=== PATIENT | male | born 1990 | race Caucasian/White ===

== ENCOUNTER 2017-02-24 00:01 | Emergency (ER) | payer SELFPAY ==
[~2017-02-24] VITALS: Ht 182.9 cm; Wt 77.1 kg
[2017-02-24] MEDS ORDERED: LACTATED RINGERS 1,000 ML IV ONE ×2 (00:32→02:31)
--- NOTE | 2017-02-24 00:40 | ED GI ---
General Chief Complaint: -Male Stated Complaint: VOMITING,DIARRHEA Nursing Triage Note: PT AMBULATED TO ROOM. PT STATES HE HAS BEEN VOMITING AND HAVING DIARRHEA SINCE 1700 TODAY. Sepsis Screen: No Definite Risk Source of Information: Patient History of Present Illness Time Seen By Provider: 00:24 Initial Comments PT C/O NAUSEA/VOMITING/DIARRHEA SINCE 1699 TODAY HAS VOMITED > 15 TIMES, DIARRHEA >30 TIMES--NO HEMATEMESIS, AND NO BLACK/BLOODY/ TARRY STOOLS VOIDED "A COUPLE OF DROPS" OVER 2 HOURS AGO NO KNOWN FEVER MINOR GENERALIZED ABDOMINAL PAIN/DISCOMFORT PT STATES "I CAN'T KEEP DOWN WATER--I'M SEVERELY DEHYDRATED" STATES HE WORKED UNTIL 1400 TODAY AND FELT FINE ATE AT 1500 TODAY--[employer]for SANDWICH + ANTIPASTA AT [employer] --GIRLFRIEND HAD THE SAME AND SHE IS NOT ILL. NO KNOWN SICK CONTACTS ATE A CANDY BAR FOR BREAKFAST NO OTHER FOOD INTAKE TODAY WAS DRINKING LIQUIDS UP UNTIL THAT POINT NO PCP Allergies and Home Medications Allergies Coded Allergies: No Known Drug Allergies (Unverified , 02/24/17) Home Medications Hyoscyamine Sulfate 0.125 Mg Tab.subl, 1-2 TAB SL Q4H, #15 Prescribed by: CASIMIRO KING on 02/24/17 0240 Lactobacillus Acidophilus 1 Each Capsule, 2 EACH PO QID, #80 Prescribed by: CASIMIRO KING on 02/24/17 0240 Ondansetron 4 Mg Tab.rapdis, 4 MG PO Q4H, #10 Prescribed by: CASIMIRO KING on 02/24/17 0240 Review of Systems Constitutional: No chills, No diaphoresis, No dizziness, No fever, malaise, weakness EENTM: No Symptoms Reported Respiratory: No Symptoms Reported Cardiovascular: No Symptoms Reported Gastrointestinal: See HPI, Abdominal Pain, Diarrhea, Nausea, Poor Appetite, Poor Fluid Intake, Vomiting Genitourinary: See HPI Musculoskeletal: no symptoms reported Skin: no symptoms reported Psychiatric/Neurological: No Symptoms Reported Endocrine: No Symptoms Reported Hematologic/Lymphatic: No Symptoms Reported Past Adudbja-Lyxzgo-Gzqmbj Hx Patient Social History Alcohol Use: Occasionally Uses Recreational Drug Use: Yes (THC) Drug of Choice: THC Smoking Status: Never a Smoker 2nd Hand Smoke Exposure: No Recent Foreign Travel: No Contact w/Someone Who Travel: No Recent Infectious Disease Expo: No Recent Hopitalizations: No Seasonal Allergies Seasonal Allergies: No Surgeries HX Surgeries: No Respiratory Hx Respiratory Disorders: No Cardiovascular Hx Cardiac Disorders: No Neurological Hx Neurological Disorders: No Reproductive System Hx Reproductive Disorders: No Genitourinary Hx Genitourinary Disorders: No Gastrointestinal Hx Gastrointestinal Disorders: No Musculoskeletal Hx Musculoskeletal Disorders: No Endocrine Hx Endocrine Disorders: No HEENT HX ENT Disorders: No Cancer Hx Cancer: No Psychosocial Hx Psychiatric Problems: No Integumentary HX Skin/Integumentary Disorder: No Blood Transfusions Hx Blood Disorders: No Physical Exam Vital Signs VS - Last 72 Hours, by Label 02/24/17 00:13 Temp 97.7 Pulse 84 Resp 20 B/P (MAP) 123/82 Pulse Ox 100 O2 Delivery Room Air Capillary Refill : Less Than 3 Seconds General Appearance: thin, other (LOOKS MILDLY ILL) HEENT: PERRL/EOMI, other (DRY ORAL MUCOSA) Neck: non-tender, full range of motion, supple, normal inspection Respiratory: normal breath sounds, no respiratory distress, no accessory muscle use Cardiovascular: regular rate, rhythm, no JVD, no murmur Gastrointestinal: soft, no organomegaly, no pulsatile mass, abnormal bowel sounds (RARE), No distended, No guarding, No rebound, tenderness (MILD DIFFUSE) Extremities: normal range of motion, non-tender, normal inspection, no pedal edema, no calf tenderness, normal capillary refill Back: normal inspection, no CVA tenderness, no vertebral tenderness Neurologic/Psychiatric: cake former II-XII nml as tested, no motor/sensory deficits, alert, normal mood/affect, oriented x 3 Skin: normal color, warm/dry Progress/Results/Core Measures Results/Orders Lab Results Laboratory Tests Test 02/24/17 00:21 02/24/17 02:05 Range/Units White Blood Count 13.2 H 4.3-11.0 10^3/uL Red Blood Count 5.70 4.35-5.85 10^6/uL Hemoglobin 17.2 13.3-17.7 G/DL Hematocrit 49 40-54 % Mean Corpuscular Volume 87 80-99 FL Mean Corpuscular Hemoglobin 30 25-34 PG Mean Corpuscular Hemoglobin Concent 35 32-36 G/DL Red Cell Distribution Width 12.6 10.0-14.5 % Platelet Count 224 130-400 10^3/uL Mean Platelet Volume 10.9 H 7.4-10.4 FL Neutrophils (%) (Auto) 80 H 42-75 % Lymphocytes (%) (Auto) 9 L 12-44 % Monocytes (%) (Auto) 10 0-12 % Eosinophils (%) (Auto) 1 0-10 % Basophils (%) (Auto) 0 0-10 % Neutrophils # (Auto) 10.8 H 1.8-7.8 X 10^3 Lymphocytes # (Auto) 0.9 L 1.0-4.0 X 10^3 Monocytes # (Auto) 1.3 H 0.0-1.0 X 10^3 Eosinophils # (Auto) 0.2 0.0-0.3 10^3/uL Basophils # (Auto) 0.0 0.0-0.1 10^3/uL Sodium Level 140 135-145 MMOL/L Potassium Level 4.2 3.6-5.0 MMOL/L Chloride Level 103 98-107 MMOL/L Carbon Dioxide Level 22 21-32 MMOL/L Anion Gap 15 H 5-14 MMOL/L Blood Urea Nitrogen 22 H 7-18 MG/DL Creatinine 1.08 0.60-1.30 MG/DL Estimat Glomerular Filtration Rate > 60 BUN/Creatinine Ratio 20 Glucose Level 150 H 70-105 MG/DL Calcium Level 10.4 H 8.5-10.1 MG/DL Total Bilirubin 1.2 H 0.1-1.0 MG/DL Aspartate Amino Transf (AST/SGOT) 86 H 5-34 U/L Alanine Aminotransferase (ALT/SGPT) 182 H 0-55 U/L Alkaline Phosphatase 86 40-136 U/L Total Protein 8.4 H 6.4-8.2 GM/DL Albumin 5.1 H 3.2-4.5 GM/DL Amylase Level 114 25-125 U/L Lipase 7 L 8-78 U/L Urine Color YELLOW Urine Clarity CLEAR Urine pH 8 5-9 Urine Specific [place] 1.015 L 1.016-1.022 Urine Protein 2+ H NEGATIVE Urine Glucose (UA) NEGATIVE NEGATIVE Urine Ketones NEGATIVE NEGATIVE Urine Nitrite NEGATIVE NEGATIVE Urine Bilirubin NEGATIVE NEGATIVE Urine Urobilinogen NORMAL NORMAL MG/DL Urine Leukocyte Esterase NEGATIVE NEGATIVE Urine RBC (Auto) NEGATIVE NEGATIVE Urine RBC NONE /HPF Urine WBC NONE /HPF Urine Squamous Epithelial Cells RARE /HPF Urine Crystals NONE /LPF Urine Bacteria TRACE /HPF Urine Casts NONE /LPF Urine Mucus SMALL H /LPF Urine Culture Indicated NO My Orders Orders - CASIMIRO KING DO Saline Lock/Iv-Start (02/24/17 00:32) Amylase (02/24/17 00:32) Cbc With Automated Diff (02/24/17 00:32) Comprehensive Metabolic Panel (02/24/17 00:32) Lipase (02/24/17 00:32) Ua Culture If Indicated (02/24/17 00:32) Stool Culture (02/24/17 00:32) Fecal Wbc (02/24/17 00:32) Ondansetron Injection (Zofran Injectio (02/24/17 00:45) Saline Lock/Iv-Start (02/24/17 00:32) Lactated Ringers (Lr 1000 Ml Iv Solution (02/24/17 00:32) C Difficile Ag + Toxin A/B. (02/24/17 00:32) Ct Abdomen/Pelvis W (02/24/17 01:18) Iohexol Injection (Omnipaque 350 Mg/Ml 1 (02/24/17 01:30) Ns (Ivpb) (Sodium Chloride 0.9% Ivpb Bag (02/24/17 01:30) Ondansetron Injection (Zofran Injectio (02/24/17 01:45) Hepatitis Panel Acute (02/24/17 01:35) Saline Lock/Iv-Start (02/24/17 02:31) Lactated Ringers (Lr 1000 Ml Iv Solution (02/24/17 02:31) Medications Given in ED Current Medications Medications Dose Ordered Sig/Mirian Route Start Time Stop Time Status Last Admin Dose Admin Iohexol 100 ml ONCE ONCE IV 02/24/17 01:30 02/24/17 01:54 DC 02/24/17 01:55 100 ML Lactated Ringer's 1,000 ml @ 0 mls/hr Q0M ONCE IV 02/24/17 00:32 02/24/17 00:34 DC 02/24/17 00:49 1,000 MLS/HR Lactated Ringer's 1,000 ml @ 0 mls/hr Q0M ONCE IV 02/24/17 02:31 02/24/17 02:32 DC 02/24/17 02:30 1,000 MLS/HR Ondansetron HCl 8 mg ONCE ONCE IVP 02/24/17 00:45 02/24/17 00:46 DC 02/24/17 00:49 8 MG Ondansetron HCl 8 mg ONCE ONCE IVP 02/24/17 01:45 02/24/17 01:46 DC 02/24/17 01:38 8 MG Sodium Chloride 80 ml ONCE ONCE IV 02/24/17 01:30 02/24/17 01:54 DC 02/24/17 01:54 80 ML Vital Signs/I&O Vital Sign - Last 12Hours 02/24/17 00:13 Temp 97.7 Pulse 84 Resp 20 B/P (MAP) 123/82 Pulse Ox 100 O2 Delivery Room Air Blood Pressure Mean: 96 Progress Note : Progress Note DIARRHEA X 1 IN ER ON ARRIVAL--SENT FOR STOOL STUDIES, NO FURTHER DIARRHEA VOMITED X 1 ON ARRIVAL, NO FURTHER VOMITING NAUSEA RELIEVED AND PT TOLERATING WATER LOOKS AND FEELS MUCH BETTER AT DISMISSAL, AND PT COMFORTABLE GOING HOME. Diagnostic Imaging Comments CT ABDOMEN/PELVIS--DIFFUSE FLUID FILLED AND HYPEREMIC LOOPS OF SMALL AND LARGE BOWEL EXTENDING DOWN TO RECTUM--NON-SPECIFIC, BUT MAY REPRESENT GASTROENTERITIS- -INFECTIOUS VS INFLAMMATORY, MILDLY ENLARGED LIVER AND FATTY INFILTRATION--PER [facility] VIA FAX @ 9781 Reviewed: Reviewed by Me Departure Impression Impression: Primary Impression: Gastroenteritis Additional Impressions: Dehydration Elevated liver enzymes Disposition: HOME, SELF-CARE Condition: Improved Departure-Patient Inst. Referrals: NO,LOCAL PHYSICIAN (PCP/Family) Primary Care Physician Patient Instructions: Dehydration, Adult (DC), Liver Function Test, Viral Gastroenteritis, Adult (DC) Add. Discharge Instructions: CLEAR LIQUIDS--WATER, BROTH, JELLO, GATORADE TOMORROW IF YOU ARE BETTER, ADD BRATS DIET TO CLEAR LIQUIDS ACIDOPHILUS 2 PILLS 4 TIMES A DAY X 1 WEEK FOLLOW UP WITH TOMORROW IF NO BETTER, RETURN TO ER IF WORSE FOLLOW UP WITH IN 1 WEEK TO RECHECK LAB AND LIVER ENZYMES--LIST OF LOCAL DR'S PROVIDED All discharge instructions reviewed with patient and/or family. Voiced understanding. Scripts Ondansetron (Zofran Odt) 4 Mg Tab.rapdis 4 MG PO Q4H for Nausea/Vomiting, #10 TAB Prov: CASIMIRO KING DO 02/24/17 Hyoscyamine Sulfate (Levsin-Sl) 0.125 Mg Tab.subl 1-2 TAB SL Q4H for Abdominal Pain, #15 TAB Prov: CASIMIRO KING DO 02/24/17 Lactobacillus Acidophilus (Acidophilus) 1 Each Capsule 2 EACH PO QID, #80 CAP Prov: CASIMIRO KING DO 02/24/17 Work/School Note: Local Medical Staff Listing, Work Release Form Date Seen in the Emergency Department: Feb 24, 2017 Return to Work: Feb 26, 2017 Restrictions: No Restrictions CASIMIRO KING DO Feb 24, 2017 00:40
[2017-02-24] MEDS ORDERED: ONDANSETRON 4 MG/2 ML (SDV) Z0FRAN IVP ONE ×2 (00:45→01:45)
[2017-02-24 00:49] LABS: BASOPHILS % (AUTO) 0 % (0-10); EOSINOPHILS # (AUTO) 0.2 10^3/uL (0.0-0.3); EOSINOPHILS % (AUTO) 1 % (0-10); LYMPHOCYTES # (AUTO) 0.9 X 10^3 (1.0-4.0); LYMPHOCYTES % (AUTO) 9 % (12-44); MEAN CORPUSCULAR HEMOGLOBIN 30 PG (25-34); MEAN CORPUSCULAR HGB CONC 35 G/DL (32-36); MEAN CORPUSCULAR VOLUME 87 FL (80-99); MEAN PLATELET VOLUME 10.9 FL (7.4-10.4); MONOCYTES # (AUTO) 1.3 X 10^3 (0.0-1.0); MONOCYTES % (AUTO) 10 % (0-12); NEUTROPHILS # (AUTO) 10.8 X 10^3 (1.8-7.8); PLATELET COUNT 224 10^3/uL (130-400); RED CELL DISTRIBUTION WIDTH 12.6 % (10.0-14.5); WHITE BLOOD COUNT 13.2 10^3/uL (4.3-11.0)
[2017-02-24 00:50] LABS: NEUTROPHILS % (AUTO) 80 % (42-75)
[2017-02-24 01:09] LABS: ALANINE AMINOTRANSFERASE 182 U/L (0-55); ALBUMIN 5.1 GM/DL (3.2-4.5); AMYLASE 114 U/L (25-125); ANION GAP 15 MMOL/L (5-14); ASPARTATE AMINO TRANSFERASE 86 U/L (5-34); BILIRUBIN,TOTAL 1.2 MG/DL (0.1-1.0); BLOOD UREA NITROGEN 22 MG/DL (7-18); BUN/CREATININE RATIO 20; CALCIUM 10.4 MG/DL (8.5-10.1); CARBON DIOXIDE 22 MMOL/L (21-32); CHLORIDE 103 MMOL/L (98-107); CREATININE SERUM 1.08 MG/DL (0.60-1.30); GFR ESTIMATED > 60; GLUCOSE 150 MG/DL (70-105); LIPASE 7 U/L (8-78); POTASSIUM 4.2 MMOL/L (3.6-5.0); SODIUM 140 MMOL/L (135-145); TOTAL PROTEIN 8.4 GM/DL (6.4-8.2)
[2017-02-24] MEDS ORDERED: IOHEXOL 350 MG/ML 100 ML (OMNIPAQUE 350) VIAL IV ONE (01:30)
[2017-02-24] MEDS ORDERED: NS 100 ML (IVPB) BAG IV ONE (01:30)
[2017-02-24 02:20] LABS: BILIRUBIN,URINE NEGATIVE (NEGATIVE); KETONES,URINE NEGATIVE (NEGATIVE); LEUKOCYTE ESTERASE ,URINE NEGATIVE (NEGATIVE); NITRITE,URINE NEGATIVE (NEGATIVE); PH,URINE 8 (5-9); PROTEIN,URINE 2+ (NEGATIVE); UROBILINOGEN,URINE NORMAL (NORMAL)
[2017-02-24 02:22] LABS: SQUAMOUS EPITHELIAL CELL,UR RARE /HPF
[2017-02-24] MEDS ORDERED: ONDA4TAB8 PO (02:40)
[2017-02-24] MEDS ORDERED: HYOS0.1283 SL (02:40)
[2017-02-24] MEDS ORDERED: LACT1CAP8 PO (02:40)
[2017-02-24 03:10] VITALS: BP 123/82
--- NOTE | 2017-02-24 11:36 | Diagnostic Imaging Report ---
PROCEDURE: CT abdomen and pelvis with contrast. TECHNIQUE: Multiple contiguous axial images were obtained through the abdomen and pelvis after administration of intravenous contrast. INDICATION: Nausea, vomiting, diarrhea. Comparison studies: None. FINDINGS: The lung bases are clear. Borderline fatty infiltration of the liver is present with the liver and spleen being upper normal. The gallbladder, pancreas, adrenal glands, and kidneys appear normal. No ascites, free air, or abnormal adenopathy is present. Urinary bladder demonstrates some mild thickening of the bladder wall which may be due to underdistention. The prostate gland is normal. No hernias are present. There is no ascites or free air. Some small bowel loops are mildly dilated with some air-fluid levels in the left side of the abdomen. The bowel loops are slightly hyperemic extending down to the rectum. Findings are suggestive of nonspecific coloenteritis. IMPRESSION: 1. There is nonspecific coloenteritis. 2. Borderline hepatosplenomegaly. 3. The bladder wall is mildly thickened possibly due to infection versus underdistention. Dictated by: Dictated on workstation # [id number]
== END 2017-02-24 03:10 | disposition home or self-care (01) ==
LOC: EDUNIT# 00:01 → ER 00:04
DX: K52.9 Noninfective gastroenteritis and colitis, unspecified (principal); E86.0 Dehydration; R74.8 Abnormal levels of other serum enzymes
CPT/HCPCS: 36415; 74177; 80053; 80074; 81000; 82150; 83690; 85025; 87045; 87046; 87324; 87449; 89055